=== PATIENT | female | born 2000 ===

== ENCOUNTER 2024-10-23 12:07 | Emergency (ER) | payer SELFPAY ==
[~2024-10-23] VITALS: Ht 157.5 cm; Wt 77.0 kg
[2024-10-23 12:18] VITALS: O2SAT 99
[2024-10-23 14:10] VITALS: BP 114/63; PULSE 56; RESP 14; TEMP 36.9; O2SAT 99
== END 2024-10-23 14:12 | disposition home or self-care (01) ==
LOC: ER 12:07
DX: S67.192A Crushing injury of right middle finger, initial encounter (principal); W20.8XXA Other cause of strike by thrown, projected or falling object, initial encounter; Y93.89 Activity, other specified; Y92.89 Other specified places as the place of occurrence of the external cause; Y99.8 Other external cause status
CPT/HCPCS: 73130; 99283